=== PATIENT | female | born 1935 | race Caucasian/White ===

== ENCOUNTER 2021-08-29 19:24 | Emergency (ER) | payer MEDICARE, MEDICAID ==
[~2021-08-29] VITALS: Ht 157.5 cm; Wt 61.2 kg
--- NOTE | 2021-08-29 19:40 | PHYS DOC ---
Past History Past Medical History: Arthritis (WINDY CRUZ Luisa REDEVELOPMENT MANAGER) Adult General Chief Complaint Chief Complaint: MECHANICAL FALL HPI HPI Patient is a 86-year-old female patient with history of high cholesterol on simvastatin, arthritis on Celebrex, who presents to the ED today to be evaluated after falling at home. Initial information was obtained from EMS. Patient's daughter came to the ED, she stated patient was walking into the daughter's room, she twisted and fell hitting the back of her head on the ground. Daughter stated patient was awake but not responding to questions. (WINDY CRUZ REDEVELOPMENT MANAGER) Review of Systems Review of Systems Constitutional: Denies fever or chills [] Eyes: Denies change in visual acuity, redness, or eye pain [] HENT: Denies nasal congestion or sore throat [] Respiratory: Denies cough or shortness of breath [] Cardiovascular: No additional information not addressed in HPI [] GI: Denies abdominal pain, nausea, vomiting, bloody stools or diarrhea [] : Denies dysuria or hematuria [] Musculoskeletal: Denies back pain or joint pain [] Integument: Denies rash or skin lesions [] Neurologic: EMS reports falling and hitting the back of her head. All other systems were reviewed and found to be within normal limits, except as documented in this note. (WINDY CRUZ REDEVELOPMENT MANAGER) Physical Exam Physical Exam Constitutional: Well developed, well nourished, no acute distress, non-toxic appearance. [] HENT: Normocephalic, atraumatic, bilateral external ears normal, oropharynx moist, no oral exudates, nose normal. [] Eyes: PERRLA, EOMI, conjunctiva normal, no discharge. [] Neck: Normal range of motion, no tenderness, supple, no stridor. [] Cardiovascular:Heart rate regular rhythm, no murmur [] Lungs & Thorax: Bilateral breath sounds clear to auscultation [] Abdomen: Bowel sounds normal, soft, no tenderness, no masses, no pulsatile masses. [] Skin: Warm, dry, no erythema, no rash. [] Back: No tenderness, no CVA tenderness. [] Extremities: No tenderness, no cyanosis, no clubbing, ROM intact, no edema. [] Neurologic: Posterior head contusion noted. Alert and oriented X 2, normal motor function, normal sensory function, no focal deficits noted. Cranial nerves II through XII intact Psychologic: Affect normal, judgement normal, mood normal. [] (WINDY CRUZ REDEVELOPMENT MANAGER) EKG EKG [address] Moore sinus rhythm heart rate 84 no STEMI (WINDY CRUZ REDEVELOPMENT MANAGER) Radiology/Procedures Radiology/Procedures []PROCEDURE: CT HEAD AND CERVICAL SPINE WO STUDY: CT head and cervical spine without contrast INDICATION: Fall. COMPARISON: None. TECHNIQUE: Axial CT imaging through the head and cervical spine without the use of intravenous contrast. Sagittal and coronal reformats were obtained. One or more of the following individualized dose reduction techniques were utilized for this examination: 1. Automated exposure control 2. Adjustment of the mA and/or kV according to patient size 3. Use of iterative reconstruction technique. FINDINGS: CT head: Acute mildly depressed but nondisplaced fracture of the right parietal bone best appreciated on the coronal reformats such as image 28 series 4. Overlying scalp hematoma in addition to small volume subjacent subarachnoid and subdural hemorrhage. Additionally there is small volume subarachnoid and subdural hemorrhage along portions of the left frontal lobe such as well seen at the base of the anterior cranial fossa on image 8 series 4. Symmetric configuration of the ventricular system. No midline shift. Chavarria-white matter differentiation is maintained. Parenchymal volume loss, intracranial calcific atherosclerosis and white matter findings most typical of chronic microvascular ischemic change. Irregular morphology of the right more so than left lobes is chronic. CT cervical spine: Noting osteopenia no acute fracture is identified. Interspinous widening at C5- C6 appears chronic/degenerative. No abnormal widening across the facet joints. Multilevel degenerative changes with discogenic arthrosis most pronounced at C5- C6 and C6-C7. Central canal stenosis greatest at C6-C7 but estimated at no more than moderate. No paraspinous hematoma to indicate an occult fracture. Bilateral carotid calcific atherosclerosis. No apical pneumothorax. IMPRESSION: CT head: 1. Mildly depressed right parietal calvarial fracture without displacement. Overlying scalp hematoma. Small volume subarachnoid and subdural hemorrhage below the calvarial fracture in addition to small volume subarachnoid and subdural hemorrhage along the left frontal lobe greatest in volume at the base of the anterior cranial fossa. Recommend attention on follow-up to help determine if there is any hemorrhagic contusion at the base of the left frontal lobe. No resultant midline shift or hydrocephalus. CT cervical spine: 1. Taking into consideration osteopenia no acute fracture. 2. Multifactorial degenerative changes without evidence for severe central canal stenosis. FOR INTERNAL CODING PURPOSES Critical result: Findings discussed with WINDY CRUZ on 08/29/2021 at 9:40 PM. RESULT CODE: (C) Electronically signed by: ZULEYKA BALLARD MD (08/29/2021 9:49 PM) [facility] DICTATED AND SIGNED BY: ZULEYKA BALLARD MD DATE: 08/29/212126 CC: WINDY CRUZ APRN; VLADIMIR GOMEZ MD ~MTH0 0 PROCEDURE: PORTABLE CHEST 1V Exam: Chest one view INDICATION: Fall TECHNIQUE: Frontal view of the chest Comparisons: None FINDINGS: The cardiomediastinal silhouette and pulmonary vessels are within normal limits. The lung and pleural spaces are clear. IMPRESSION: No acute cardiopulmonary process. Electronically signed by: Cali Brown MD (08/29/2021 9:39 PM) [facility] DICTATED AND SIGNED BY: CALI BROWN MD DATE: 08/29/212138 CC: WINDY CRUZ APRN; VLADIMIR GOMEZ MD ~MTH0 0 PROCEDURE: CT THORACIC SPINE WO CONTRAST STUDY: 1. CT thoracic spine without contrast 2. CT lumbar spine without contrast 3. CT pelvis without contrast INDICATION: Fall. COMPARISON: None. TECHNIQUE: Axial CT imaging of the thoracic and lumbar spine and pelvis performed without the use of contrast. Coronal and sagittal reformats were obtained. One or more of the following individualized dose reduction techniques were utilized for this examination: 1. Automated exposure control 2. Adjustment of the mA and/or kV according to patient size 3. Use of iterative reconstruction technique. FINDINGS: Thoracic spine: 11 typical thoracic vertebral bodies Diffuse osteopenia limits assessment for subtle fractures. No concerning vertebral body height loss or malalignment. No displaced posterior element fracture or facet dislocation. Sigmoid curvature. Multilevel degenerative changes. No paraspinous hematoma. Multifocal calcific atherosclerosis with coronary artery involvement. Lumbar spine: Chronic superior endplate height loss at L2. Chronic concavity with Schmorl's nodes at the cephalad margin of L4 and L5. No acute fracture is apparent. Degenerative grade 1 anterolisthesis of L5 on S1. Central canal stenosis likely severe at L5-S1. No paraspinous hematoma. Vascular calcifications. Pelvis: No acute fracture is identified. 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 The hardware is intact and well fixated. No malalignment at the hips. No large soft tissue hematoma. IMPRESSION: Thoracic spine/lumbar spine/pelvis: 1. Taking into consideration diffuse osteopenia no acute fracture is identified throughout the thoracic spine, lumbar spine or pelvis. 2. Multifactorial degenerative changes and additional chronic observations as outlined in the body of the report. Electronically signed by: ZULEYKA BALLARD MD (08/29/2021 10:02 PM) [facility] DICTATED AND SIGNED BY: ZULEYKA BALLARD MD DATE: 08/29/212148 CC: WINDY CRUZ APRN; VLADIMIR GOMEZ MD ~MTH0 0 (WINDY CRUZ APRN) Heart Score C/O Chest Pain: N/A Risk Factors: Risk Factors: DM, Current or recent (<one month) smoker, HTN, HLP, family history of CAD, obesity. Risk Scores: Risk Factors: DM, Current or recent (<one month) smoker, HTN, HLP, family history of CAD, obesity. (WINDY CRUZ APRN) Course & Med Decision Making Course & Med Decision Making Pertinent Labs and Imaging studies reviewed. (See chart for details) This is a 86-year-old female patient presenting to the ED today to be evaluated after falling. Patient has no complaints. Daughter states patient did not respond much after falling. She is alert and oriented to self and place only. Vitals on arrival to the ED temperature 98.4, heart rate 83, respiration 18, blood pressure 154/69, O2 sats 95% CT of the head noted for mildly depressed right parietal calvarial fracture without displacement. Overlying scalp hematoma. Small volume subarachnoid and subdural hemorrhage below the calvarial fracture in addition to small volume subarachnoid and subdural hemorrhage along the left frontal lobe greatest in volume at the base of the anterior cranial fossa. Recommend attention on follow- up to help determine if there is any hemorrhagic contusion at the base of the left frontal lobe. No resultant midline shift or hydrocephalus. CT of thoracic and lumbar spine as well as pelvis are negative, chest x-ray is negative. Labs are pending [address] Head while waiting for bed at [facility] Spoke with Nilam CONRAD for neurosurgery. She requested we admit patient at [facility] ICU, they will do MRI in the morning, n.p.o., neurochecks. Diego low Spoke with Dr. Julio who accepted patient for admission at [facility] (JONNYWINDY VALDEZ REDEVELOPMENT MANAGER) Course & Med Decision Making Pt. awaiting transfer to [facility]- for a depressed Skull fracture, with Subarachnoid and subdural hemorrhage Lt. Frontal - from fall at 1900 hrs. See Tyson Cruz notes [prior shift change. Neurosurgery aware- Hakan Carlson for Collette Foster. Pt. has removed her collar. Currently no complaints of neck pain. Pt. sleeping most of night. Did have a episode of getting out of bed and found walking in hallway. Mildly confused. Stated she was trying to find the stairs to go up stairs. Pt. escorted back and placed in Room 6, for more one on one observation. Impression: 1. Fall 2. Depressed Rt.. Parietal Skull Fracture 3. Subarachnoid and Subdural Hemorrhage- Lt Frontal 4. Scalp Hematoma Endorsed to Dr. Boland at shift change. Still awaiting Room at [facility]. (PAKO HEAD MD) Course & Med Decision Making CT HEAD WITHOUT CONTRAST History: repeat to eval SAH and subdural , abnormal CT head. Comparison: CT head without contrast, prior day. Technique: Axial images are obtained of the head from the skull base through the vertex without IV contrast. Findings: Right parietal subarachnoid hemorrhage is unchanged. Tiny left frontal subdural hematoma is unchanged. A tiny amount of acute intraventricular hemorrhage is now seen posteriorly. There is new left temporoparietal subarachnoid hemorrhage. There is new minimal right temporal subarachnoid hemorrhage. Interval development of hemorrhagic contusion of the inferior left frontal lobe. No mass-effect, midline shift, or obvious acute infarction is identified. Basilar cisterns are patent. The ventricles and sulci are prominent, consistent with generalized cerebral atrophy. There is periventricular white matter hypoattenuation. This is a nonspecific finding but is commonly due to chronic small vessel ischemic disease. The calvarium is stable. The visualized paranasal sinuses are clear. Mastoid air cells are well aerated. IMPRESSION: 1. Interval development of acute hemorrhagic contusion of the inferior left frontal lobe. 2. There is new mild subarachnoid hemorrhage in the right temporal lobe and the left temporal parietal lobe. 3. There is new tiny amount of acute intraventricular hemorrhage bilaterally. 4. Right parietal subarachnoid hemorrhage and tiny left frontal subdural hematoma are unchanged. Electronically signed by: Tyshawn Marsh MD (08/30/2021 11:54 AM) [id number] ////////////////////////////// I assumed care of patient after comprehensive signout from outgoing physician. I reviewed the critical nature of patient's diagnoses and fact that patient still pending hospital transfer to [facility] for neurosurgery evaluation I personally saw patient he was hemodynamically stable and repeated certain aspects of history and physical exam. Patient confused, AO to person only with unknown baseline as she is here alone with no other family. I contacted [facility] who reported that patient was "on the list" to get transferred, as such I contacted [facility] system to review ER visit. I discussed the case with hospitalist, trauma and neurosurgeon Recommendation was to administer 500 mg Keppra twice daily immediately with repeat CT imaging with findings shown above. These findings were then discussed at length with neurosurgery discussing there was little to no immediate surgical indication I disclosed with trauma and hospitalist service that patient does appear more confused than usual which was later confirmed by son at bedside, she was often getting out of bed, getting naked and ripping IV out which is not her baseline. She lives at home with daughter who cannot take care of her in current state. Ultimately, joint decision among all to transfer patient to [facility] for hospitalization and further specialist consultation and dispo planning Critical Care Time This patient required critical care. Due to the fact that the patient required a significant amount of one on one physician - patient contact time, ordering and review of studies, arranging urgent treatment with development of a management plan, evaluation of patients response to treatment with frequent reassessments, and discussions with other providers this patient required 40 minutes of critical care time. Critical care time was indicated due to the inherent instability and/or potential for instability in this patient. The critical care time that is allocated to this patient is above and beyond any time spent on any other billable procedures performed on this patient. (DEVANTE BOLAND DO) Marco Antonio Disclaimer Dragon Disclaimer This electronic medical record was generated, in whole or in part, using a voice recognition dictation system. (WINDY CRUZ REDEVELOPMENT MANAGER) Departure Departure: Impression: Primary Impression: Fall from standing Additional Impressions: Subarachnoid hemorrhage Subdural hemorrhage Skull fracture Disposition: 02 [facility] ([facility]) Admitting Physician: Other (dr murguia) (DEVANTE BOLAND DO) Condition: STABLE Referrals: VLADIMIR GOMEZ MD (PCP) NIH Stroke Scale: NIH Stroke Scale Response (Comments) Value Level of Consciousness: 0 Alert/Responsive 0 LOC Questions: 1 Answers one correctly 1 LOC Commands: 0 Performs both tasks 0 Best Gaze: 0 Normal 0 Visual: 0 No visual loss 0 Facial Palsy: 0 Normal, symmetrical 0 Motor - Left Arm 0 No drift 0 Motor - Right Arm 0 No drift 0 Motor - Left Leg 0 No drift 0 Motor: Right Leg 0 No drift 0 Limb Ataxia: 0 Absent 0 Sensory: 0 No loss 0 Best Language: 0 Normal 0 Dysathria: 0 Normal 0 Extinction and Inattention: 0 Normal 0 Total 1 Dragon Disclaimer This chart was dictated in whole or in part using Voice Recognition software in a busy, high-work load, and often noisy Emergency Department environment. It may contain unintended and wholly unrecognized errors or omissions. (PAKO EHAD MD) Dragon Disclaimer This chart was dictated in whole or in part using Voice Recognition software in a busy, high-work load, and often noisy Emergency Department environment. It may contain unintended and wholly unrecognized errors or omissions. (PAKO HEAD MD) Attending Signature Attending Signature I have participated in the care of this patient and I have reviewed and agree with all pertinent clinical information above including history, exam, and recommendations. (PAKO HEAD MD) Problem Qualifiers Primary Impression: Fall from standing Encounter type: initial encounter Qualified Codes: W19.XXXA - Unspecified fall, initial encounter Additional Impressions: Skull fracture Encounter type: initial encounter Skull bone/location: unspecified skull bone Fracture type: closed Qualified Codes: S02.91XA - Unspecified fracture of skull, initial encounter for closed fracture JONNYWINDY VALDEZ Luisa MCELROY Aug 29, 2021 19:40 PAKO HEAD MD Aug 29, 2021 22:36 DEVANTE BOLAND DO Aug 30, 2021 13:45
[2021-08-29 21:08] LABS: AMPHETAMINE/METHAMPHETAMINE NEG (NEG); BARBITURATES NEG (NEG); BENZODIAZEPINES NEG (NEG); CANNABINOIDS NEG (NEG); COCAINE NEG (NEG); METHADONE NEG (NEG); OPIATES NEG (NEG); PHENCYCLIDINE NEG (NEG)
[2021-08-29 21:15] LABS: BACTERIA,URINE MOD /HPF (0-FEW); BILIRUBIN,URINE NEG (NEG); CLARITY,URINE CLEAR; COLOR,URINE YELLOW; GLUCOSE,URINE NEG (NEG); NITRITE,URINE NEG (NEG); RBC,URINE 0 /HPF (0-2)
[2021-08-29 21:16] LABS: SQUAMOUS EPITHELIAL CELL,UR FEW /LPF
--- NOTE | 2021-08-29 21:42 | RAD ---
Exam: Chest one view INDICATION: Fall TECHNIQUE: Frontal view of the chest Comparisons: None FINDINGS: The cardiomediastinal silhouette and pulmonary vessels are within normal limits. The lung and pleural spaces are clear. IMPRESSION: No acute cardiopulmonary process. Electronically signed by: Cali Bucio MD (08/29/2021 9:39 PM) RAGHAVENDRA
--- NOTE | 2021-08-29 21:51 | RAD ---
STUDY: CT head and cervical spine without contrast INDICATION: Fall. COMPARISON: None. TECHNIQUE: Axial CT imaging through the head and cervical spine without the use of intravenous contra st. Sagittal and coronal reformats were obtained. One or more of the following individualized dose reduction techniques were utilized for this examinat ion: 1. Automated exposure control 2. Adjustment of the mA and/or kV according to patient size 3. Use of iterative reconstruction technique. FINDINGS: CT head: Acute mildly depressed but nondisplaced fracture of the right parietal bone best appreciated on the c oronal reformats such as image 28 series 4. Overlying scalp hematoma in addition to small volume subj acent subarachnoid and subdural hemorrhage. Additionally there is small volume subarachnoid and subdu ral hemorrhage along portions of the left frontal lobe such as well seen at the base of the anterior cranial fossa on image 8 series 4. Symmetric configuration of the ventricular system. No midline shif t. Chavarria-white matter differentiation is maintained. Parenchymal volume loss, intracranial calcific atherosclerosis and white matter findings most typical of chronic microvascular ischemic change. Irregular morphology of the right more so than left lobes is chronic. CT cervical spine: Noting osteopenia no acute fracture is identified. Interspinous widening at C5-C6 appears chronic/deg enerative. No abnormal widening across the facet joints. Multilevel degenerative changes with discoge naz arthrosis most pronounced at C5-C6 and C6-C7. Central canal stenosis greatest at C6-C7 but estima dimas at no more than moderate. No paraspinous hematoma to indicate an occult fracture. Bilateral carotid calcific atherosclerosis. N o apical pneumothorax. IMPRESSION: CT head: 1. Mildly depressed right parietal calvarial fracture without displacement. Overlying scalp hematoma . Small volume subarachnoid and subdural hemorrhage below the calvarial fracture in addition to small volume subarachnoid and subdural hemorrhage along the left frontal lobe greatest in volume at the ba se of the anterior cranial fossa. Recommend attention on follow-up to help determine if there is any hemorrhagic contusion at the base of the left frontal lobe. No resultant midline shift or hydrocephal us. CT cervical spine: 1. Taking into consideration osteopenia no acute fracture. 2. Multifactorial degenerative changes without evidence for severe central canal stenosis. FOR INTERNAL CODING PURPOSES Critical result: Findings discussed with WINDY CRUZ on 08/29/2021 at 9:40 PM. RESULT CODE: (C) Electronically signed by: ZULEYKA BALLARD MD (08/29/2021 9:49 PM) [facility]
[2021-08-29 21:58] LABS: BASO # 0.1 x10^3/uL (0.0-0.2); BASO % 1 % (0-3); EOS # 0.2 x10^3/uL (0.0-0.7); EOS % 2 % (0-3); HEMATOCRIT 38.4 % (36.0-47.0); HEMOGLOBIN 12.9 g/dL (12.0-15.5); LYMPH # 1.3 x10^3/uL (1.0-4.8); LYMPH % 13 % (24-48); MEAN CORPUSCULAR HEMOGLOBIN 31 pg (25-35); MEAN CORPUSCULAR HGB CONC 34 g/dL (31-37); MEAN CORPUSCULAR VOLUME 93 fL (79-100); MONO # 0.9 x10^3/uL (0.0-1.1); MONO % 9 % (0-9); NEUT # 7.9 x10^3uL (1.8-7.7); NEUT % 76 % (31-73); PLATELET COUNT 202 x10^3/uL (140-400); RED BLOOD COUNT 4.14 x10^6/uL (3.50-5.40); RED CELL DISTRIBUTION WIDTH 13.3 % (11.5-14.5); WHITE BLOOD COUNT 10.3 x10^3/uL (4.0-11.0)
[2021-08-29 22:04] LABS: CALCIUM 8.9 mg/dL (8.5-10.1); CREATININE 0.9 mg/dL (0.6-1.0); GFR 59.4; POTASSIUM 4.4 mmol/L (3.5-5.1)
--- NOTE | 2021-08-29 22:04 | RAD ---
STUDY: 1. CT thoracic spine without contrast 2. CT lumbar spine without contrast 3. CT pelvis without contrast INDICATION: Fall. COMPARISON: None. TECHNIQUE: Axial CT imaging of the thoracic and lumbar spine and pelvis performed without the use of contrast. Coronal and sagittal reformats were obtained. One or more of the following individualized dose reduction techniques were utilized for this examinat ion: 1. Automated exposure control 2. Adjustment of the mA and/or kV according to patient size 3. Use of iterative reconstruction technique. FINDINGS: Thoracic spine: 11 typical thoracic vertebral bodies Diffuse osteopenia limits assessment for subtle fractures. No concerning vertebral body height loss o r malalignment. No displaced posterior element fracture or facet dislocation. Sigmoid curvature. Mult ilevel degenerative changes. No paraspinous hematoma. Multifocal calcific atherosclerosis with coronary artery involvement. Lumbar spine: Chronic superior endplate height loss at L2. Chronic concavity with Schmorl's nodes at the cephalad m argin of L4 and L5. No acute fracture is apparent. Degenerative grade 1 anterolisthesis of L5 on S1. Central canal stenosis likely severe at L5-S1. No paraspinous hematoma. Vascular calcifications. Pelvis: No acute fracture is identified. Streak artifact from a total right hip arthroplasty construct hinder s close assessment of the immediately adjacent osseous structures. The hardware is intact and well fi xated. No malalignment at the hips. No large soft tissue hematoma. IMPRESSION: Thoracic spine/lumbar spine/pelvis: 1. Taking into consideration diffuse osteopenia no acute fracture is identified throughout the thora cic spine, lumbar spine or pelvis. 2. Multifactorial degenerative changes and additional chronic observations as outlined in the body o f the report. Electronically signed by: ZULEYKA BALLARD MD (08/29/2021 10:02 PM) [facility]
[2021-08-29 22:17] LABS: ALBUMIN 3.7 g/dL (3.4-5.0); MAGNESIUM 2.7 mg/dL (1.8-2.4); TOTAL BILIRUBIN 0.6 mg/dL (0.2-1.0); TOTAL PROTEIN 7.3 g/dL (6.4-8.2)
--- NOTE | 2021-08-29 22:50 | EKG ---
[address] [address] Test Date: 2021-08-29 Test Time: 21:40:23 Pat Name: ASHLEY HALE Department: Room: Gender: [employer] Director: : 1935 Requested By: WINDY CRUZ Order Number: [id number] Reading MD: Ramiro Patel Measurements Intervals [place] Rate: 84 P: 45 RI: 254 QRS: -34 QRSD: 86 T: 62 QT: 376 QTc: 448 Interpretive Statements SINUS RHYTHM PROLONGED RI INTERVAL ABNORMAL LEFT AXIS DEVIATION LEFT ANTERIOR FASCICULAR BLOCK Electronically Signed On 08-30-2021 14:27:14 BARIATRIC SURGEON by Ramiro Patel
--- NOTE | 2021-08-30 11:57 | RAD ---
PQRS Compliance Statement: One or more of the following individualized dose reduction techniques were utilized for this examinat ion: 1. Automated exposure control 2. Adjustment of the mA and/or kV according to patient size 3. Use of iterative reconstruction technique CT HEAD WITHOUT CONTRAST History: repeat to eval SAH and subdural , abnormal CT head. Comparison: CT head without contrast, prior day. Technique: Axial images are obtained of the head from the skull base through the vertex without IV co ntrast. Findings: Right parietal subarachnoid hemorrhage is unchanged. Tiny left frontal subdural hematoma is unchanged . A tiny amount of acute intraventricular hemorrhage is now seen posteriorly. There is new left tempo roparietal subarachnoid hemorrhage. There is new minimal right temporal subarachnoid hemorrhage. Inte rval development of hemorrhagic contusion of the inferior left frontal lobe. No mass-effect, midline shift, or obvious acute infarction is identified. Basilar cisterns are paten t. The ventricles and sulci are prominent, consistent with generalized cerebral atrophy. There is perive ntricular white matter hypoattenuation. This is a nonspecific finding but is commonly due to chronic small vessel ischemic disease. The calvarium is stable. The visualized paranasal sinuses are clear. Mastoid air cells are well aerated. IMPRESSION: 1. Interval development of acute hemorrhagic contusion of the inferior left frontal lobe. 2. There is new mild subarachnoid hemorrhage in the right temporal lobe and the left temporal pariet al lobe. 3. There is new tiny amount of acute intraventricular hemorrhage bilaterally. 4. Right parietal subarachnoid hemorrhage and tiny left frontal subdural hematoma are unchanged. Electronically signed by: Tyshawn Marsh MD (08/30/2021 11:54 AM) [id number]
[2021-08-30 13:00] VITALS: BP 120/68
== END 2021-08-30 14:40 | disposition short-term general hospital (02) ==
LOC: ER 19:24
DX: S06.6X9A Traumatic subarachnoid hemorrhage with loss of consciousness of unspecified duration, initial encounter (principal); S06.5X9A Traumatic subdural hemorrhage with loss of consciousness of unspecified duration, initial encounter; S02.91XA Unspecified fracture of skull, initial encounter for closed fracture; E78.00 Pure hypercholesterolemia, unspecified; M19.90 Unspecified osteoarthritis, unspecified site; W18.39XA Other fall on same level, initial encounter; Y93.01 Activity, walking, marching and hiking; Y92.098 Other place in other non-institutional residence as the place of occurrence of the external cause; Y99.8 Other external cause status
CPT/HCPCS: 36415; 70450; 71045; 72125; 72128; 72131; 72192; 80053; 80307; 81001; 83735; 83880; 84484; 85025; 85610; 85730; 87086; 87426; 93005; 96365; 99291; C9803; J1953; U0003; 99285-25